=== PATIENT | male | born 1995 | race Two or more races ===

== ENCOUNTER 2025-02-22 13:13 | Emergency (ER) | payer SELFPAY ==
[~2025-02-22] VITALS: Ht 165.1 cm; Wt 105.2 kg
[2025-02-22 13:18] VITALS: BP 127/77; PULSE 112; RESP 20; TEMP 97.6; O2SAT 99
[2025-02-22] MEDS ORDERED: ARIP15TA3 PO (13:50)
[2025-02-22] MEDS: LORazepam 1 MG tablet PO ONE (13:56)
[2025-02-22] MEDS: aripiprazole 5mg tablet PO ONE (13:56)
[2025-02-22] MEDS ORDERED: METF-438 PO (13:56)
== END 2025-02-22 14:00 | disposition home or self-care (01) ==
LOC: ER 13:14
DX: F41.9 Anxiety disorder, unspecified (principal); F31.9 Bipolar disorder, unspecified; Z76.0 Encounter for issue of repeat prescription; E11.9 Type 2 diabetes mellitus without complications
CPT/HCPCS: 99283